=== PATIENT | male | born 1945 | race African-American/Black ===

== ENCOUNTER 2018-07-12 12:39 | Emergency (ER) | payer MEDICARE ==
[2018-07-12 12:50] VITALS: BP 137/74
[2018-07-12] MEDS ORDERED: BUPIVACAINE HCL 0.75% INJ/PF (7.5 MG/1 ML) 10 ML SDV INJ ONE (13:06)
[2018-07-12] MEDS ORDERED: METHYLPREDNISOLONE ACETATE INJ 80 MG/1 ML VIAL IM ONE (13:06)
--- NOTE | 2018-07-12 13:26 | ER Document Report ---
ED Extremity Problem, Upper - General Chief Complaint: Shoulder Pain Stated Complaint: SHOULDER PAIN Time Seen by Provider: 07/12/18 13:03 Information source: Patient Notes: Chief complaint: Right shoulder pain History of complain:( obtained from----patient) 72 years old male presents today with chronic right shoulder pain increase in intensity for the last few days. With limitation of range of motion. No injuries. No other constitutional symptoms. Onset: As above Duration: Long-standing Severity: Moderate Quality: Sharp Context: Arthritis Exacerbating factor and relieving factors: Any movement of the shoulder REVIEW OF SYSTEMS: CONSTITUTIONAL : Denies fever, chills, or sweats. Denies recent illness. EENT: Denies eye, ear, throat, or mouth pain or symptoms. Denies nasal or sinus congestion or discharge. Denies throat, tongue, or mouth swelling or difficulty swallowing. CARDIOVASCULAR: Denies chest pain. Denies palpitations or racing or irregular heart beat. Denies ankle edema. RESPIRATORY: Denies cough, cold, or chest congestion. Denies shortness of breath, difficulty breathing, or wheezing. GASTROINTESTINAL: Denies distention. Denies nausea, vomiting, or diarrhea. Denies blood in vomitus, stools, or per rectum. Denies black, tarry stools. Denies constipation. GENITOURINARY: Denies difficulty urinating, painful urination, burning, frequency, blood in urine, or discharge. FEMALE GENITOURINARY: Denies vaginal bleeding, heavy or abnormal periods, irregular periods. Denies vaginal discharge or odor. MUSCULOSKELETAL: Denies back or neck pain or stiffness. Denies joint pain or swelling. SKIN: Denies rash, lesions or sores. HEMATOLOGIC : Denies easy bruising or bleeding. LYMPHATIC: Denies swollen, enlarged glands. NEUROLOGICAL: Denies confusion or altered mental status. Denies passing out or loss of consciousness. Denies dizziness or lightheadedness. Denies headache. Denies weakness or paralysis or loss of use of either side. Denies problems with gait or speech. Denies sensory loss, numbness, or tingling. Denies seizures. PSYCHIATRIC: Denies anxiety or stress. Denies depression, suicidal ideation, or homicidal ideation. ALL OTHER SYSTEMS REVIEWED AND NEGATIVE. PHYSICAL EXAMINATION: GENERAL: Well-appearing, well-nourished and in no acute distress. HEAD: Atraumatic, normocephalic. EYES: Pupils equal round and reactive to light, extraocular movements intact, conjunctiva are normal. ENT: Nares patent, oropharynx clear without exudates. Moist mucous membranes. NECK: Normal range of motion, supple without lymphadenopathy LUNGS: Breath sounds clear to auscultation bilaterally and equal. No wheezes rales or rhonchi. HEART: Regular rate and rhythm without murmurs ABDOMEN: Soft, nontender, nondistended abdomen. No guarding, no rebound. No masses appreciated. Examination of genitals-deferred Musculoskeletal: Right shoulder joint shows no swelling erythema or warmness. Range of motion is limited for abduction up to 90 degrees flexion up to 60 degrees. Extension 10-12 degrees. Rotation is extremely limited. Neurovascular function distally within normal limits. NEUROLOGICAL: Cranial nerves grossly intact. Normal speech, normal gait. Normal sensory, motor exams PSYCH: Normal mood, normal affect. SKIN: Warm, Dry, normal turgor, no rashes or lesions noted. Dictation was performed using [employer] voice recognition software TRAVEL OUTSIDE OF THE [place] IN LAST 30 DAYS: No - HPI Notes: Dictated - Related Data Allergies/Adverse Reactions: chlorpromazine [From Thorazine] Allergy (Verified 07/12/18 12:43) Past Medical History - Social History Smoking Status: Never Smoker Chew tobacco use (# tins/day): No Frequency of alcohol use: None Drug Abuse: None Lives with: Family Family History: Reviewed & Not Pertinent Patient has suicidal ideation: No Patient has homicidal ideation: No Endocrine Medical History: Reports: Hx Diabetes Mellitus Type 2 Renal/ Medical History: Denies: Hx Peritoneal Dialysis Past Surgical History: Reports: Hx Bowel Surgery - hernia repair, Hx Neurologic Surgery - back surgery Review of Systems - Review of Systems Notes: Dictated Physical Exam - Vital signs Vitals: Temp Pulse Resp BP Pulse Ox 97.5 F 53 L 16 137/74 H 96 07/12/18 12:48 07/12/18 12:48 07/12/18 12:48 07/12/18 12:48 07/12/18 12:48 - Notes Notes: Dictated Course - Vital Signs Vital signs: Temp Pulse Resp BP Pulse Ox 97.5 F 53 L 16 137/74 H 96 07/12/18 12:48 07/12/18 12:48 07/12/18 12:48 07/12/18 12:48 11/09/18 12:48 Procedures - Joint Aspiration Right Shoulder Time completed: 13:20 Consent obtained: Yes Anesthetic type: 0.5% Bupivacaine mL's of anesthetic: 3 Needle size: 27 Notes: Under aseptic condition using sterile technique after cleaning with alcohol 3 cc of Sensorcaine mixed with 80 mg of Depo-Medrol injected into the right shoulder joint without any complications. Patient will tolerate the procedure well. Pain was relieved. Discharge - Discharge Clinical Impression: Arthritis of shoulder Shoulder pain, acute Qualifiers: Laterality: right Qualified Code(s): M25.511 - Pain in right shoulder Condition: Fair Disposition: HOME, SELF-CARE Instructions: Arthritis ([facility]) Prescriptions: Hydrocodone Bit/Acetaminophen [Hydrocodon-Acetaminophen 5-325] 1 each PO TID # 14 tablet
== END 2018-07-12 13:27 | disposition home or self-care (01) ==
LOC: ER 12:39
DX: M19.011 Primary osteoarthritis, right shoulder (principal); E11.9 Type 2 diabetes mellitus without complications; Z88.0 Allergy status to penicillin
CPT/HCPCS: 99283; 20610; J3490; J1040

== ENCOUNTER → 2019-01-02 | Outpatient (CLI) | payer MEDICAID, MEDICARE ==
--- NOTE | 2019-01-02 15:14 | RADIOLOGY REPORT (SQ) ---
EXAM DESCRIPTION: MRI RT UPPER JOINT WITHOUT COMPLETED DATE/TIME: 01/02/2019 11:11 am REASON FOR STUDY: RIGHT SHOULDER PAIN (M25.511) M25.511 PAIN IN RIGHT SHOULDER COMPARISON: None. TECHNIQUE: Right shoulder images acquired and stored on PACS. Multiplanar imaging to include fat sen sitive sequences such as T1, water sensitive sequences such as FST2/STIR, cartilage sensitive sequenc es such as FSPD/gradient-echo sequences. LIMITATIONS: None. FINDINGS: BONE MARROW AND CORTEX: Small focus of subcortical edema along the posterior aspect right humeral head greater tuberosity axial image 7 JOINT OR BURSAL EFFUSION: Trace fluid in the subacromial/subdeltoid bursa GLENO-HUMERAL ARTICULATION: Normal articulation. No subluxation. No cystic change. No osteophytes or cartilage loss. ACROMION AND AC JOINT: Type 2 acromion with bulky acromioclavicular joint hypertrophy, bony spurring and synovial thickening. There is narrowing of the subacromial space with trace fluid in the subacr omial bursa. This best shown on sagittal image 9 ROTATOR CUFF AND INTERVAL: There is a small partial thickness tear anterior most edge supraspinatus t endon on coronal image 6 and sagittal images 5-7. There is tendinopathy in the anterior edge of the supraspinatus tendon. Remainder of the rotator cuff is intact. No rotator interval tear. No rotator interval thickening to suggest adhesive capsulitis. LABRUM AND BICEPS LABRAL COMPLEX: Intra-articular long head biceps tendon is diffusely thickened an d high in signal from tendinopathy. There is diffuse superior labral tear extending anteriorly and p osteriorly without paralabral cyst. Best shown on axial images 4-7. REMAINDER OF LABRUM AND IGHL : No gross tear or paralabral cyst formation. Labral evaluation is less than optimal without joint distention. No thickening of IGHL to suggest adhesive capsulitis. PERIARTICULAR AND ADJACENT SOFT TISSUES: No masses or abnormal nodes. OTHER: No other significant finding. IMPRESSION: Partial thickness tear with tendinopathy anterior edge supraspinatus tendon Intra-articular long head biceps tendinopathy Superior labral tear Acromioclavicular joint bony spurring TECHNICAL DOCUMENTATION: JOB ID: [id number] [employer]- All Rights Reserved Reading location - IP/workstation name: [email or web address]
== END ==
LOC: RAD 10:24
PROVIDERS: ATTEND Nurse Practitioner Family
DX: M25.511 Pain in right shoulder (principal)

== ENCOUNTER 2020-02-08 16:19 | Emergency (ER) | payer MEDICARE ==
[2020-02-08 16:25] VITALS: BP 127/81
--- NOTE | 2020-02-08 16:50 | ER Document Report ---
HPI - HPI Patient complains to provider of: toe bleeding Time Seen by Provider: 02/08/20 16:45 Context: 74-year-old male presents to the emergency room today stating that he had been bleeding to his right second toe after trying to trim them himself he feels like he might of trimmed him to close bleeding is stopped at this point in time these occurred 3 hours ago. Associated Symptoms: None Exacerbated by: Denies Relieved by: Denies Past Medical History - General Information source: Patient - Social History Smoking Status: Never Smoker Cigarette use (# per day): No Chew tobacco use (# tins/day): No Smoking Education Provided: No Frequency of alcohol use: None Drug Abuse: None Family History: Reviewed & Not Pertinent Endocrine Medical History: Reports: Hx Diabetes Mellitus Type 2 Renal/ Medical History: Denies: Hx Peritoneal Dialysis Past Surgical History: Reports: Hx Bowel Surgery - hernia repair, Hx Neurologic Surgery - back surgery Vertical Provider Document - INFECTION CONTROL TRAVEL OUTSIDE OF THE [place] IN LAST 30 DAYS: No - HEENT HEENT: Atraumatic, Conjuctival Injection, Normocephalic, PERRLA - NECK Neck: Normal Inspection, Supple - RESPIRATORY Respiratory: Breath Sounds Normal, No Respiratory Distress - CARDIOVASCULAR Cardiovascular: Regular Rate, Regular Rhythm - GI/ABDOMEN Gastrointestinal: Abdomen Soft, Abdomen Non-Tender - BACK Back: Normal Inspection - MUSCULOSKELETAL/EXTREMETIES Musculoskeletal/Extremeties: MAEW Notes: There is some dried blood noted on the right second toe bleeding totally controlled this point time patient is diabetic we will put him on antibiotics prophylactically his tetanus shot is up-to-date. Course - Vital Signs Vital signs: Temp Pulse Resp BP Pulse Ox 99.1 F 78 17 127/81 H 98 02/08/20 16:23 02/08/20 16:23 02/08/20 16:23 02/08/20 16:23 02/08/20 16:23 Discharge - Discharge Clinical Impression: Abrasion, toe without infection Condition: Good Disposition: HOME, SELF-CARE Instructions: Abrasions ([facility]) Additional Instructions: Warm soaks 4-5 times a day medications prescribed and follow-up with podiatry return to the ER for any change worsening condition. Prescriptions: Sulfamethoxazole/Trimethoprim [Bactrim Ds Tablet] 1 each PO Q12 #20 tablet Referrals: ANAHI,LULU, [employer] [Primary Care Provider] - Follow up as needed
== END 2020-02-08 16:58 | disposition home or self-care (01) ==
LOC: ER 16:19
DX: S90.414A Abrasion, right lesser toe(s), initial encounter (principal); W27.8XXA Contact with other nonpowered hand tool, initial encounter; E11.9 Type 2 diabetes mellitus without complications
CPT/HCPCS: 99283

== ENCOUNTER 2020-04-01 07:36 | Day surgery (SDC) | payer MEDICARE ==
[~2020-04-01 07:36] MED LIST: CHONDR SU A NA/HYALUR INTRAOC KIT (SURGICARE) ONE; EPINEPHRINE INJ/PF 1 MG/1 ML AMPULE ONE; FENTANYL CITRATE INJ/PF 100 MCG/2 ML AMPUL ONE; KETOROLAC TROMETHAMINE 0.45% 4 DROP/0.4 ML DROPERETTE OD PRN; LIDOCAINE 1%/PHENYLEPHRINE 1.5% 1 ML VIAL ONE; MIDAZOLAM 2 MG/2 ML INJ ONE; ONDANSETRON HCL INJ/PF 4 MG/2 ML SDV ONE
[2020-04-01] MEDS: BESIFLOXACIN HCL 0.6% OPH SUSP 5 ML BOTTLE OD PRN ×4 (08:00→09:12)
[2020-04-01] MEDS: CYCLOPENTOLATE 0.2%/PHENYLEPHRINE 1% OPH SOLN 2 ML OD PRN ×3 (08:00→08:20)
[2020-04-01] MEDS: TETRACAINE HCL 0.5% OPH SOLN 4 ML OD PRN ×3 (08:00→08:49)
[2020-04-01] MEDS: TROPICAMIDE 1% OPH SOLN 15 ML OD PRN ×3 (08:00→08:20)
[2020-04-01] MEDS: DORZOLAMIDE HCL 2%/TIMOLOL MALEAT 0.5% OPH SOLN 10 ML OD PRN ×2 (09:12)
--- NOTE | 2020-04-02 07:28 | Operative Report ---
Operative Report-[facility] Operative Report: DATE OF SURGERY: 04/01/2020 PREOPERATIVE DIAGNOSIS: Cataract, right eye POSTOPERATIVE DIAGNOSIS: Cataract, right eye OPERATION: Cataract extraction with insertion of an IOL of the right eye. Intraocular Lens Model: [19.5 sn60wf] Patient underwent surgery for difficulty seeing small print SURGEON: Benjy Vernon MD ANESTHESIA: Topical PROCEDURE: After obtaining appropriate consent, the patient's right eye was prepped and draped in a sterile fashion as well as the surgeon in the sterile manner and cataract surgery was started. First a paracentesis blade was used to make a side-port incision. Viscoelastic was used to inflate the anterior chamber. Next a 2.4 mm incision was made with a 2.4 mm blade, clear corneal temporarily. A continuous capsulorrhexis was made using a cystotome and Utrata forceps. Following this hydrodissection was carried out to make the marcela fully loose and mobile and it was rotated. Following this, a divide and conquer technique was used to phacoemulsify the marcela. The remaining cortex was removed with an irrigation/aspiration. Provisc was instilled into the capsular bag to inflate the bag. The intraocular lens was placed. The remaining viscoelastic material was removed with irrigation/aspiration. Following this, the incision was found to be watertight. Besivance and Cosopt was instilled into the eye and a protective shield was placed over the eye. The patient was reurned to the postoperative recovery in a stable condition.
== END 2020-04-01 09:46 | disposition home or self-care (01) ==
LOC: SC 07:36
PROVIDERS: ATTEND Internal Medicine
DX: H25.813 Combined forms of age-related cataract, bilateral (principal); E11.9 Type 2 diabetes mellitus without complications; J45.909 Unspecified asthma, uncomplicated; H40.033 Anatomical narrow angle, bilateral; Z94.4 Liver transplant status; B19.20 Unspecified viral hepatitis C without hepatic coma; Z87.891 Personal history of nicotine dependence; Z79.4 Long term (current) use of insulin; Z79.899 Other long term (current) drug therapy
CPT/HCPCS: 66984; 82962; J2250; J3490 ×2; A9270; J0171; J3010; J2405; 142; V2632

== ENCOUNTER 2020-05-27 08:34 | Day surgery (SDC) | payer MEDICARE ==
[~2020-05-27 08:34] MED LIST changes: +DORZOLAMIDE HCL 2%/TIMOLOL MALEAT 0.5% OPH SOLN 10 ML OS PRN; -FENTANYL CITRATE INJ/PF 100 MCG/2 ML AMPUL ONE; -KETOROLAC TROMETHAMINE 0.45% 4 DROP/0.4 ML DROPERETTE OD PRN; +KETOROLAC TROMETHAMINE 0.45% 4 DROP/0.4 ML DROPERETTE OS PRN; +LIDOCAINE 1%/PHENYLEPHRINE 1.5% 0.8 ML SYRINGE ONE; -LIDOCAINE 1%/PHENYLEPHRINE 1.5% 1 ML VIAL ONE; -ONDANSETRON HCL INJ/PF 4 MG/2 ML SDV ONE; +PREDNISOLONE ACETATE 1% OPH SUSP 5 ML OS PRN
[2020-05-27] MEDS: TROPICAMIDE 1% OPH SOLN 15 ML OS PRN ×3 (09:18→09:40)
[2020-05-27] MEDS: TETRACAINE HCL 0.5% OPH SOLN 4 ML OS PRN ×3 (09:18→09:54)
[2020-05-27] MEDS: BESIFLOXACIN HCL 0.6% OPH SUSP 5 ML BOTTLE OS PRN ×3 (09:18→10:20)
[2020-05-27] MEDS: CYCLOPENTOLATE 0.2%/PHENYLEPHRINE 1% OPH SOLN 2 ML OS PRN ×3 (09:18→09:40)
[2020-05-27] MEDS ORDERED: FENTANYL CITRATE INJ/PF 100 MCG/2 ML AMPUL ONE (10:05)
[2020-05-27] MEDS ORDERED: MIDAZOLAM 2 MG/2 ML INJ ONE (10:27)
--- NOTE | 2020-05-27 13:18 | Operative Report ---
Operative Report-[facility] Operative Report: DATE OF SURGERY: 05/27/2020 PREOPERATIVE DIAGNOSIS: Cataracts, left eye POSTOPERATIVE DIAGNOSIS: Cataract, left eye OPERATION: Cataract extraction with insertion of an IOL of the left eye. Intraocular Lens Model: [20.5 diopter SN 60 WF] Patient underwent surgery for difficulty driving at night secondary to glare from headlights SURGEON: Benjy Vernon MD ANESTHESIA: Topical PROCEDURE: After obtaining appropriate consent, the patient's left eye was prepped and draped in a sterile fashion as well as the surgeon in the sterile manner and cataract surgery was started. First a paracentesis blade was used to make a side-port incision. Viscoelastic was used to inflate the anterior chamber. Next a 2.4 mm incision was made with a 2.4 mm blade, clear corneal temporarily. A continuous capsulorrhexis was made using a cystotome and Utrata forceps. Following this hydrodissection was carried out to make the lens fully loose and mobile and it was rotated 90 degrees. Following this, a divide and conquer technique was used to phacoemulsify the lens. The remaining cortex was removed with an irrigation/aspiration. Provisc was instilled into the capsular bag to inflate the bag.The intraocular lens was placed. The remaining viscoelastic material was removed with irrigation/aspiration. Following this, the incision was found to be watertight. Besivance and Cosopt was instilled into the eye and a protective shield was placed over the eye. The patient was returned to the postoperative recovery in a stable condition.
[2020-05-27] MEDS ORDERED: CHONDR SU A NA/HYALUR SOD 0.5 ML DISP.SYRIN ONE (13:36)
== END 2020-05-27 11:03 | disposition home or self-care (01) ==
LOC: SC 08:34
PROVIDERS: ATTEND Internal Medicine
DX: H25.812 Combined forms of age-related cataract, left eye (principal); Z96.1 Presence of intraocular lens; H40.033 Anatomical narrow angle, bilateral; E11.9 Type 2 diabetes mellitus without complications; J45.909 Unspecified asthma, uncomplicated; N28.9 Disorder of kidney and ureter, unspecified; Z87.891 Personal history of nicotine dependence; Z79.4 Long term (current) use of insulin; I10 Essential (primary) hypertension
CPT/HCPCS: 66984; 82962; V2632; J2250; J3490 ×4; A9270; J0171; J3010; 142